=== PATIENT | female | born 1990 | race Caucasian/White ===

== ENCOUNTER 2018-12-01 07:52 | Outpatient (CLI) | payer OTHER ==
--- NOTE | 2018-12-01 09:47 | MRI ---
MRI OF THE RIGHT KNEE WITHOUT CONTRAST: HISTORY: History of arthroscopic knee surgery in 2008 and 2010 with right knee pain for 8 weeks; medial right knee pain. COMPARISON: None. FINDINGS: There is a small semimembranosus-medial gastrocnemius popliteal cyst. There is a 1.2 x 1.1 cm region of articular cartilage thinning involving the median patellar ridge an d lateral patellar facet inferiorly on image 20 of series 3 and image 13 of series 7. The thinning i nvolves 50% of the articular cartilage thickness. There is edema within the superolateral aspect of Hoffa's fat pad. The extensor mechanism is intact. The MCL, ACL, PCL, and LCLC are intact. The medial and lateral menisci are intact. No full-thickn ess articular cartilage defect is seen within the femoral tibial compartments. IMPRESSION: 1. Partial thickness articular cartilage thinning involving the lower patella. There is increased e alicia within the superior lateral aspect of Hoffa's fat pad which may reflect sequelae of lateral femo ral condyle height and lateral patellar tendon friction syndrome. 2. Small popliteal cyst. 3. The menisci appear intact. 4. The anterior cruciate ligament, posterior cruciate ligament, medial collateral ligament, and LCLC are intact. POS: [facility]
== END 2018-12-01 07:53 | disposition home or self-care (01) ==
LOC: SCSMRI 07:52
PROVIDERS: ATTEND Orthopaedic Surgery
DX: M25.561 Pain in right knee (principal); M71.20 Synovial cyst of popliteal space [Baker], unspecified knee